=== PATIENT | female | born 1970 | race Caucasian/White ===

== ENCOUNTER → 2019-12-02 | Outpatient (CLI) | payer OTHER ==
--- NOTE | 2019-12-02 14:34 | REP ---
Clinical: Pain Technique: AP and lateral views of the lumbosacral spine. Findings: Alignment and lordosis maintained. No acute fracture / compression injury or subluxation. Lateral view demonstrates disc space narrowing and L5-S1 along with hypertrophic facet changes at L4-5 and L5-L1. Impression: Mild degenerative changes Electronically Signed by German Soliman MD 12/02/2019 02:25 P
== END ==
LOC: M RAD 12:45
PROVIDERS: ATTEND Internal Medicine
DX: M51.36 Other intervertebral disc degeneration, lumbar region (principal)